=== PATIENT | female | born 1995 | race Caucasian/White ===

== ENCOUNTER 2019-02-04 08:26 | Outpatient (CLI) | payer BC ==
--- NOTE | 2019-02-04 10:32 | ULT ---
RIGHT BREAST ULTRASOUND: Date: 02/04/19 HISTORY: Patient feels a broad palpable area of nodularity along the outer aspect of the right breast. This is not a focal discrete area. FINDINGS: Real-time imaging of the right breast shows very dense breast parenchyma. On one of the initial image s, at the 8 o'clock position, was an area of some altered echogenicity. Technologist felt that this w as just normal breast tissue and on real-time imaging by myself I agree. I do not see any definite si gns of a scar and there are no signs of any recurrent mass. IMPRESSION: Unremarkable right breast ultrasound. POS: OFF
== END 2019-02-04 08:27 | disposition home or self-care (01) ==
LOC: BICULT 08:26
PROVIDERS: ATTEND Obstetrics & Gynecology
DX: N63.10 Unspecified lump in the right breast, unspecified quadrant (principal)